=== PATIENT | female | born 1955 | race Caucasian/White ===

== ENCOUNTER → 2017-12-21 12:34 | Outpatient (CLI) | payer OTHER, SELFPAY ==
--- NOTE | 2017-12-21 12:37 | DI.RAD.S_ITS ---
PROCEDURE: XR SHOULDER LT MIN 2V INDICATIONS: left shoulder pain - suspect adhesive capsulitis TECHNIQUE: 3 views of the shoulder were acquired. COMPARISON: [facility], RG, XR CXR 2 VIEW, 02/23/2005, 10:46. [facility], CR, CHEST 2 VIEW, 12/18/2009, 9:29. [facility], CR, CHEST 2 VIEW, 03/28/2014, 8:27. [facility], CT, THORAX WITHOUT CONTRAST, 04/03/2014, 8:19. FINDINGS: Bones: No acute fractures or dislocations but there is moderate a.c. joint osteoarthritis and what appears to be calcific tendinitis or bursitis proper lateral aspect of the humeral head on the external rotation view. No suspicious bony lesions. Visualized ribs appear intact. Soft tissues: No suspicious soft tissue calcifications. IMPRESSION: Calcific tendinitis or bursitis lateral shoulder joint region above the outer upper border of the humeral head on the external rotation view. This can be less well-visualized on the internal rotation view superimposed on the expected course of the supraspinatus tendon. Dictated by: Sonny Triplett M.D. on 12/21/2017 at 13:25 Approved by: Sonny Triplett M.D. on 12/21/2017 at 13:27
--- NOTE | 2017-12-21 12:37 | DI.RAD.S_ITS ---
PROCEDURE: XR CERVICAL SPINE 2V OR 3V INDICATIONS: cervical pain ongoing - history of fusion TECHNIQUE: 3 view(s) of the cervical spine were acquired. COMPARISON: [facility], CR, CERVICAL SPINE 2 OR 3 VIEWS, 02/13/2015, 12:43. [facility], CT, C-SPINE WITHOUT CONTRAST, 02/28/2015, 14:56. FINDINGS: Bones: No fractures or dislocations to the T1 level. Prior extensive anterior spine fusion C3-C7, with no change in alignment of the components of the fusion devices bilaterally The lateral masses of C1 appear intact on the odontoid view. No suspicious bony lesions. Soft tissues: No prevertebral soft tissue swelling. IMPRESSION: Stable appearance of the anterior cervical fusion devices with reference to the comparison study from 02/13/15. No sign of device loosening or disruption. Dictated by: Sonny Triplett M.D. on 12/21/2017 at 13:22 Approved by: Sonny Tripltet M.D. on 12/21/2017 at 13:25
== END ==
PROVIDERS: Visit Provider Physician Assistant
DX: M54.2 Cervicalgia (principal); Z98.1 Arthrodesis status; M25.512 Pain in left shoulder
CPT/HCPCS: 72040; 73030

== ENCOUNTER → 2018-04-14 07:31 | Outpatient (CLI) | payer OTHER, SELFPAY ==
[2018-04-14 08:11] LABS: Add Manual Diff / Slide Review NO; Basophils Percent Auto 0.8 % (0-2); Eosinophils Percent Auto 3.4 % (2-4); Hematocrit 44.6 % (36-46); Hemoglobin 14.7 g/dL (12.0-16.0); Mean Corpuscular HGB Conc 32.9 % (30-36); Mean Corpuscular Hemoglobin 31.6 PG (26-34); Mean Corpuscular Volume 96.1 fL (80-100); Neutrophils Absolute Auto 3700 /uL (3000-5900); Neutrophils Percent Auto 52.8 % (50-75); Platelet Count 290 X10^3/uL (150-400); Red Blood Cell Count 4.65 X10^6/uL (4.0-5.2); Red Cell Distribution Width 13.7 % (11.6-14.8)
[2018-04-14 08:30] LABS: Alanine Aminotransferase 37 IU/L (9-52); Albumin 4.3 g/dL (3.5-5.0); Albumin Globulin Ratio 1.5 (1.0-2.8); Alkaline Phosphatase 64 U/L (38-126); Aspartate Aminotransferase 22 IU/L (14-36); BUN Creatinine Ratio 22.2 (6-22); Bilirubin Total 0.4 mg/dL (0.2-1.3); Blood Urea Nitrogen 20 mg/dL (7-17); Calcium 9.4 mg/dL (8.4-10.2); Carbon Dioxide 31 mmol/L (22-32); Chloride 102 mmol/L (98-107); Cholesterol 270 mg/dL (140-199); Estimated Glomerular Filt Rate > 60.0 mL/min (>60); Globulin 2.8 g/dL (1.7-4.1); Glucose 88 mg/dL (80-110); HDL Cholesterol 55 mg/dL (40-60); HEMOLYSIS < 15 (0-50); LDL Cholesterol Calculated 166 mg/dL (<100); Potassium 4.4 mmol/L (3.4-5.1); Sodium 144 mmol/L (137-145); Total Protein 7.1 g/dL (6.3-8.2); Triglycerides 244 mg/dL (35-150)
[2018-04-14 09:49] LABS: Thyroid Stimulating Hormone 2.32 uIU/mL (0.47-4.68)
== END ==
PROVIDERS: Visit Provider Physician Assistant
DX: E78.5 Hyperlipidemia, unspecified (principal); I47.1 Supraventricular tachycardia; R23.2 Flushing
CPT/HCPCS: 36415; 80053; 80061; 84443; 85025

== ENCOUNTER → 2018-04-20 13:30 | Outpatient (CLI) | payer OTHER, SELFPAY ==
--- NOTE | 2018-05-16 07:39 | PM.CARDMON.1 ---
[employer] Report Referral & Results Date Patient Seen: 04/20/18 Requesting provider: Paz Meza Indication: Palpitations Duration of monitoring (days): 14 Diary information: A diary entries were present, associated with sinus rhythm and PVCs 20 patient triggered events were present associated with sinus rhythm and PVCs as well Data: Minimum heart rate was 60 beats per minute at 05:53 on 04/30/2018 Maximum heart rate was 137 beats per minute at 10:15 on 04/28/2018 Less than 1% of identified beats were PACs however patient did have approximately 25,000 PVCs which composed about 1.6% of identified ventricular depolarizations. Patient did have a nearly 31 sec run of ventricular trigeminy as well. Impression: This monitor shows frequent PVCs which may well be a source of patient's symptoms of palpitations however patient has a large burden of PVCs that do not appear to be symptomatic based on only a limited number of patient reported events. No more serious or concerning dysrhythmias were identified with this study Clinical correlation suggested
== END ==
PROVIDERS: Visit Provider Physician Assistant
DX: R00.2 Palpitations (principal)
CPT/HCPCS: 0296T; 0298T

== ENCOUNTER → 2018-05-21 13:50 | Outpatient (CLI) | payer OTHER, SELFPAY | PROVIDERS: Visit Provider Physician Assistant | DX: R68.89 Other general symptoms and signs (principal) | CPT/HCPCS: 87400 ==

== ENCOUNTER 2019-03-13 01:10 | Emergency (ER) | payer OTHER, SELFPAY ==
[2019-03-13] VITALS (9 sets, daily range): BP systolic 96–146; BP diastolic 58–91; PULSE 91–208; RESP 17–20; TEMP 37.8; O2SAT 97–99
[2019-03-13] MEDS: ADENOSINE 6 MG/2 ML VIAL 12 MG IV ×2 (01:34→01:37)
[2019-03-13] MEDS: dilTIAZem 5 MG/ML SDV 10 MG IV (01:34)
--- NOTE | 2019-03-13 01:45 | ED_ITS ---
HPI - Arrhythmia/Palpitations General Chief Complaint: Arrhythmia/Palpitations Stated Complaint: Rapid Heart rate Time Seen by Provider: 03/13/19 01:20 Source: patient and EMS Mode of arrival: EMS Limitations: no limitations History of Present Illness HPI narrative: 63-year-old female arrived by EMS for evaluation of a rapid heart rate. Patient states she was woken up in the middle of the night with a fast heart rate. She was having some chest pressure at the time. She states she has had similar symptoms in the past. She has been diagnosed with SVT in the past. Has needed adenosine in the past. Has been evaluated by Cardiology has had a Holter monitor however despite all of this has never had any electrophysiologic studies. She is not currently on any medications for this. Went to bed last night feeling ?bad? that she could not express any more specific than this. Woke up with her heart beating fast. She tried vagal maneuvers that were unsuccessful. Contacted 911. When EMS arrived they stated that her heart rate was in the 220s. She received 6 mg of adenosine prior to arrival which conver sky her to sinus tachycardia with the rate in the 110s. Patient reports that she feels much better upon arrival. Related Data Home Medications Medication Instructions Recorded Confirmed Doxepin Liquid Concentrate See Rx Instructions .ROUTE .COMPLEX 12/21/17 01/03/19 valacyclovir 500 mg tablet 1,000 mg PO Q12H PRN 01/03/19 01/03/19 Previous Rx's Medication Instructions Recorded bupropion HCl 150 mg tablet,12 hr 150 mg PO BID #180 tab 09/06/18 sustained-release hydroxyzine pamoate 25 mg capsule 25 - 50 mg PO HSP PRN #45 cap 09/06/18 oxycodone-acetaminophen 5 mg-325 1 tab PO BIDP PRN #45 tab 01/03/19 mg tablet salsalate 750 mg tablet 750 mg PO BID #60 tab 01/03/19 Allergies Allergy/AdvReac Type Severity Reaction Status Date / Time celecoxib AdvReac Intermediate Diarrhea Verified 01/03/19 16:13 Hay fever Allergy Mild itchy Uncoded 01/03/19 16:13 eyes, stuffy nose, cough Review of Systems Constitutional Constitutional: Denies fever(s), Denies headache(s) and Reports malaise ENT Ears, Nose, Mouth, and Throat: Denies headache(s) Cardiovascular Cardiovascular: Reports rapid heart rate and Denies dyspnea Respiratory Respiratory: Denies dyspnea Gastrointestinal Gastrointestinal: Denies abdominal pain, Denies nausea and Denies vomiting Genitourinary Genitourinary: Denies dysuria Musculoskeletal Musculoskeletal: Denies myalgias and Denies arthralgias Integumentary/Breasts Skin/Breast: Denies lesions and Denies rash Neurologic Neurologic: Denies behavioral changes and Denies headache(s) Psychiatric Psychiatric: Denies behavioral changes and Denies depression Hematologic/Lymphatic Hematologic/Lymphatic: Denies easy bleeding and Denies easy bruising Allergic/Immunologic Allergic/Immunologic: Denies urticaria Patient History Medical History Abnormal Pap smear of cervix (Resolved) Cervical myelopathy (Resolved 11/2004) Cervical spine disease (Chronic) DDD (degenerative disc disease), cervical (Chronic) Depression (Chronic) Hyperlipemia (Chronic) Insomnia (Chronic) Low back pain (Chronic) Paroxysmal SVT (supraventricular tachycardia) (Chronic) Spondylosis (Chronic) Surgical History History of spinal fusion (11/2004) Family History (Updated 01/12/18 @ 11:52 by Baylee Pena LPN) Father Cancer Mother No problems noted. Brother No problems noted. Brother No problems noted. Social History Smoking Status: Former smoker Tobacco: How many years used: 40 second hand exposure: No alcohol intake: current (beer probably 1 to 3 a day.) substance use type: marijuana (I smoke pot once in a while, but not very much.) alcohol intake frequency: 0-2 drinks per day Alcohol type: beer Exam Initial Vital Signs Initial Vital Signs: Vital Signs Temperature 100.1 F H 03/13/19 01:15 Pulse Rate 106 H 03/13/19 01:15 Respiratory Rate 18 03/13/19 01:15 Blood Pressure 146/75 H 03/13/19 01:15 Pulse Oximetry 97 03/13/19 01:15 Const General: cooperative and comfortable Orientation: alert, awake and oriented x3 HENMT Head: normal to inspection and normocephalic Neck Neck: no meningeal signs Chest Chest: normal inspection of the chest Resp Effort & Inspection: normal respiratory effort Auscultation: clear to auscultation bilaterally Cardio Rate: tachycardic Rhythm: regular rhythm Pulses: radial pulses present GI Inspection: non-distended Palpation: soft Skin Lesions: no lesions Rashes: no rashes Neuro General: alert and oriented x3 Cognition: normal cognition Speech: speech normal Motor: muscle tone normal throughout Extrem General: normal to inspection and capillary refill normal Psych Appearance: grossly normal and well kempt Scores GCS [place] coma scale eye opening: Spontaneous [place] coma scale verbal response: Orientated [place] coma scale motor response: Obey commands [place] coma scale total score: 15 Course Orders Ordered: ED Orders 03/13/19 00:50 Basic Metabolic Panel Stat Complete Blood Count AUTO DIFF Stat Thyroid Stimulating Hormone Stat 03/13/19 01:16 EKG-12 Lead Stat Diltiazem HCl 125 mg/ Dextrose 125 mls @ 5 mls/hr IV TITRATE BATSHEVA; Protocol Last Admin: 03/13/19 01:49 Dose: 5 mg/hr, 5 mls/hr Documented by: CHELE Discontinued Medications Diltiazem HCl (Cardizem) 10 mg IV NOW ONE Stop: 03/13/19 01:43 Last Admin: 03/13/19 01:34 Dose: 10 mg Documented by: CHELE Vital Signs Vital signs: Vital Signs - 8 hr 03/13/19 01:15 03/13/19 01:34 03/13/19 01:49 Temperature 100.1 F H Pulse Rate 106 H 208 H 109 H Respiratory Rate 18 Blood Pressure 96/59 L 132/78 Blood Pressure [Left Arm] 146/75 H Pulse Oximetry 97 03/13/19 02:14 03/13/19 02:34 03/13/19 03:02 Temperature Pulse Rate 107 H 103 H 105 H Respiratory Rate 19 20 19 Blood Pressure Blood Pressure [Left Arm] 128/71 132/69 129/76 Pulse Oximetry 98 97 98 03/13/19 03:53 03/13/19 04:45 Temperature Pulse Rate 105 H 98 H Respiratory Rate 20 Blood Pressure Blood Pressure [Left Arm] 118/91 H 133/75 Pulse Oximetry 97 MDM - Arrhythmia/Palpitations Lab Data Attestation: I reviewed the patient's lab results. Result diagrams: 03/13/19 00:50 03/13/19 00:50 Labs: Lab Results 03/13/19 03/13/19 03/13/19 Range/Units 00:50 00:50 00:50 WBC 10.0 (4.5-11.0) X10^3/uL RBC 4.75 (4.0-5.2) X10^6/uL Hgb 15.4 (12.0-16.0) g/dL Hct 45.4 (36-46) % MCV 95.7 (80-100) fL MCH 32.4 (26-34) PG MCHC 33.8 (30-36) % RDW 13.5 (11.6-14.8) % Plt Count 291 (150-400) X10^3/uL Neut % (Auto) 57.8 (50-75) % Lymph % (Auto) 30.4 (25-40) % [place] % (Auto) 8.7 (3-14) % Eos % (Auto) 2.2 (2-4) % Baso % (Auto) 0.9 (0-2) % Neut # (Auto) 5800 (1811-1916) /uL Lymph # (Auto) 3000 (7741-1826) /uL [place] # (Auto) 900 (0-900) /uL Eos # (Auto) 200 (0-450) /uL Baso # (Auto) 100 (0-100) /uL Sodium 139 (137-145) mmol/L Potassium 4.2 (3.4-5.1) mmol/L Chloride 103 (98-107) mmol/L Carbon Dioxide 25 (22-32) mmol/L BUN 13 (7-17) mg/dL Creatinine 1.00 (0.52-1.04) mg/dL Estimated GFR 55.8 L (>60) mL/min BUN/Creatinine Ratio 13.0 (6-22) Glucose 167 H (80-110) mg/dL Calcium 9.9 (8.4-10.2) mg/dL TSH 4.07 (0.47-4.68) uIU/mL ECG Data Attestation: I personally reviewed and interpreted this ECG as follows: Prior ECG tracings: not available for review Interpretation: EKG upon arrival Sinus rhythm Ventricular rate of 108 Normal axis Normal QRS Normal QTC No ST T wave changes EKG with episode of SVT Tachycardic Ventricular rate of [address] depressions EKG after adenosine Sinus rhythm Ventricular rate of 150 Normal QRS [address] depressions in 2, 3, AVF, V2 V3 V4 V5 V6 MDM Narrative Medical decision making narrative: Patient arrived in sinus tachycardia. Blood pressure is unremarkable. She states that she felt much better from the start of her symptoms. She was slightly tachycardic. Because of this she was being observed in the emergency department when she had another episode of SVT. Rates in the 220s. She was given 6 mg of adenosine which decreased her rate into the 110s. This maintained for approximately 1 minute when she again had another episode of SVT. She was then given 12 mg of adenosine which improved her rate again to the 110s. She maintained this for under 5 minutes when again she had another episode of SVT with a rate in the 220s. She was then given 10 mg of Cardizem and started on a 5 milligram/hour drip of Cardizem. This decreased her heart rate to the 100s. I discussed the case with Dr. Patel who stated that the patient could be transferred to [facility] for further cardiologic/EP workup. I then discussed the case with with Internal Medicine who accepts the patient in transport. Discussed the transfer with patient. She expressed understanding and agreement. Critical Care Time Critical Care Time Critical Care Time: Yes Total Critical Care Time: 45 Attestation: The high probability of a clinically significant, sudden or life threatening deterioration of the cardiovascular system(s) required my full and direct attention, intervention and personal management. The aggregate critical care time was 45 minutes. This time is in addition to time spent performing reported procedures but includes the following: [] Data Review and interpretation [] Patient assessment and monitoring of vital signs [] Documentation [] Medication orders and management Discharge Plan Departure Patient Disposition: [facility] Clinical Impression: Supraventricular tachycardia Prescriptions: No Action Doxepin Liquid Concentrate See Rx Instructions .ROUTE .COMPLEX RF: 0 bupropion HCl [Wellbutrin SR] 150 mg tablet sustained-release 12 hr 150 mg PO BID Qty: 180 RF: 1 hydroxyzine pamoate [Vistaril] 25 mg capsule 25 - 50 mg PO HSP PRN (Reason: anxiety) Qty: 45 RF: 3 valacyclovir 500 mg tablet 1,000 mg PO Q12H PRNRF: 0 salsalate 750 mg tablet 750 mg PO BID Qty: 60 RF: 3 oxycodone-acetaminophen 5-325 mg tablet 1 tab PO BIDP PRN (Reason: chronic neck pain) Qty: 45 RF: 0 Referrals: Paz Meza PA-C [Primary Care Provider] -
[2019-03-13] MEDS: dilTIAZem 125 MG in DEXTROSE 5 % IN WATER 100 ML IV (01:49)
--- NOTE | 2019-03-13 02:28 | PC.NURSE ---
per ems hr 220s on scene, 6 of adenosine given on scene and patient converted. Pt arrived and placed on monitors. After several minutes patient went back in svt. 6 of adenosine given and pt converted with HR of 109. Minutes later patient returned to SVT with rate in the 220s. 12 of adenosine given and patient converted with HR of 110. Within minutes SVT returned. Cardezem push and drip started. HR 105 BP 132/69
[2019-03-13 02:32] LABS: Add Manual Diff / Slide Review NO; Basophils Absolute Auto 100 /uL (0-100); Basophils Percent Auto 0.9 % (0-2); Eosinophils Absolute Auto 200 /uL (0-450); Eosinophils Percent Auto 2.2 % (2-4); Hematocrit 45.4 % (36-46); Hemoglobin 15.4 g/dL (12.0-16.0); Lymphocytes Absolute Auto 3000 /uL (1100-4500); Lymphocytes Percent Auto 30.4 % (25-40); Mean Corpuscular HGB Conc 33.8 % (30-36); Mean Corpuscular Hemoglobin 32.4 PG (26-34); Mean Corpuscular Volume 95.7 fL (80-100); Monocytes Absolute Auto 900 /uL (0-900); Monocytes Percent Auto 8.7 % (3-14); Neutrophils Absolute Auto 5800 /uL (1500-7000); Neutrophils Percent Auto 57.8 % (50-75); Platelet Count 291 X10^3/uL (150-400); Red Blood Cell Count 4.75 X10^6/uL (4.0-5.2); Red Cell Distribution Width 13.5 % (11.6-14.8)
[2019-03-13 02:35] LABS: Blood Urea Nitrogen 13 mg/dL (7-17); Calcium 9.9 mg/dL (8.4-10.2); Carbon Dioxide 25 mmol/L (22-32); Chloride 103 mmol/L (98-107); Estimated Glomerular Filt Rate 55.8 mL/min (>60); Glucose 167 mg/dL (80-110); HEMOLYSIS 16 (0-50); Potassium 4.2 mmol/L (3.4-5.1); Sodium 139 mmol/L (137-145)
--- NOTE | 2019-03-13 03:07 | PC.NURSE ---
patient transfered self to and from commode with no assistance needed.
--- NOTE | 2019-03-13 03:10 | PC.NURSE ---
ecg performed upon arrival. ecg performed prior to cardezem push to capture with hr in the 220s.
[2019-03-13 03:12] LABS: Thyroid Stimulating Hormone 4.07 uIU/mL (0.47-4.68)
--- NOTE | 2019-04-06 21:55 | PC.NURSE ---
Diltiazem to continue in transport. Pt transfered with Kasia bryant.
== END 2019-03-13 06:57 | disposition short-term general hospital (02) ==
PROVIDERS: Emergency Provider Emergency Medicine; PCP Physician Assistant
DX: I47.1 Supraventricular tachycardia (principal)
CPT/HCPCS: 80048; 84443; 85025; 93005; 93010; 96365; 96366; 96375; 99283; 99291; J0153

== ENCOUNTER → 2019-05-07 14:02 | Outpatient (CLI) | payer OTHER, SELFPAY ==
--- NOTE | 2019-05-07 14:03 | DI.MG.S_ITS ---
BILATERAL DIGITAL SCREENING MAMMOGRAM 3D/2D WITH CAD: 05/07/2019 CLINICAL: Routine screening. Comparison is made to exams dated: 04/28/2012 mammogram, 10/16/2007 mammogram - [facility], and 12/12/2000 mammogram - [facility]. There are scattered fibroglandular elements in both breasts. Current study was also evaluated with a Computer Aided Detection (CAD) system. No significant masses, calcifications, or other findings are seen in either breast. There has been no significant interval change. IMPRESSION: NEGATIVE There is no mammographic evidence of malignancy. A 1 year screening mammogram is recommended. This exam was interpreted at Station ID: [id number]. NOTE: For mammograms, a report in lay terms will be sent to the patient. Approximately 15% of breast malignancies will not be visualized mammographically. In the management of a palpable breast mass, a negative mammogram must not discourage biopsy of a clinically suspicious lesion. Electronically Signed By: Giuseppe mccallum/roverto:05/07/2019 18:16:14 letter sent: Normal Exam ACR BI-RADS Category 1: Negative 3341F
== END ==
PROVIDERS: PCP Student in an Organized Health Care Education/Training Program; Visit Provider Physician Assistant
DX: Z12.31 Encounter for screening mammogram for malignant neoplasm of breast (principal)
CPT/HCPCS: 77063; 77067

== ENCOUNTER → 2020-12-15 09:55 | Outpatient (CLI) | payer OTHER, SELFPAY ==
--- NOTE | 2020-12-15 09:57 | DI.RAD.S_ITS ---
PROCEDURE: XR LUMBAR SPINE 2-3V INDICATIONS: Low back pain TECHNIQUE: 3 views of the lumbar spine were acquired. COMPARISON: [facility], CT, CT CHEST WITHOUT CONTRAST, 03/14/2019, 17:15. FINDINGS: Bones: 5 [id number] vertebrae are present. Minimal scoliosis. Exaggerated lumbar spine lordosis. Small vertebral body osteophytes. Suspected loss of intervertebral disc space height at L2-L3. Lower lumbar spine facet joint hypertrophy. No vertebral body compression fractures. No suspicious bony lesions. Soft tissues: Overlying bowel gas pattern is normal. No suspicious soft tissue calcifications. Vascular arterial calcifications. IMPRESSION: [id number] degenerative change and degenerative disc disease in the lumbar spine. Dictated by: Alvarado Pink M.D. on 12/15/2020 at 11:13 Approved by: Alvarado Pink M.D. on 12/15/2020 at 11:16
== END ==
PROVIDERS: PCP Student in an Organized Health Care Education/Training Program; Referring Provider Student in an Organized Health Care Education/Training Program; Visit Provider Student in an Organized Health Care Education/Training Program
DX: M54.5 Low back pain (principal); M51.36 Other intervertebral disc degeneration, lumbar region; M47.816 Spondylosis without myelopathy or radiculopathy, lumbar region
CPT/HCPCS: 72100

== ENCOUNTER → 2021-04-29 14:35 | Outpatient (CLI) | payer OTHER, SELFPAY ==
--- NOTE | 2021-04-29 14:42 | DI.RAD.S_ITS ---
PROCEDURE: XR DEXA AXIAL SKELETON INDICATIONS: Osteoporosis screening COMPARISON: None. FINDINGS: This blank DEXA report has been sent in error by the PACS system. The correct and complete report will be forthcoming in 1-2 days. Thank you for your patience and understanding. Dictated by: Jessica Quick MD, PhD on 04/29/2021 at 17:02 Approved by: Jessica Quick MD, PhD on 04/29/2021 at 17:02
== END ==
PROVIDERS: PCP Student in an Organized Health Care Education/Training Program; Referring Provider Student in an Organized Health Care Education/Training Program; Visit Provider Student in an Organized Health Care Education/Training Program
DX: Z78.0 Asymptomatic menopausal state (principal); Z87.891 Personal history of nicotine dependence
CPT/HCPCS: 77080

== ENCOUNTER → 2021-06-01 07:48 | Outpatient (CLI) | payer OTHER, SELFPAY ==
--- NOTE | 2021-06-01 07:50 | DI.MG.S_ITS ---
BILATERAL DIGITAL SCREENING MAMMOGRAM 3D/2D WITH CAD: 06/01/2021 CLINICAL: Routine screening. Comparison is made to exams dated: 05/07/2019 mammogram, 04/28/2012 mammogram, and 10/16/2007 mammogram - [facility]. There are scattered fibroglandular elements in both breasts. Current study was also evaluated with a Computer Aided Detection (CAD) system. No significant masses, calcifications, or other findings are seen in either breast. There has been no significant interval change. IMPRESSION: NEGATIVE There is no mammographic evidence of malignancy. A 1 year screening mammogram is recommended. This exam was interpreted at Station ID: [id number]. NOTE: For mammograms, a report in lay terms will be sent to the patient. Approximately 15% of breast malignancies will not be visualized mammographically. In the management of a palpable breast mass, a negative mammogram must not discourage biopsy of a clinically suspicious lesion. Electronically Signed By: Giuseppe Finch M.D. at/roverto:06/01/2021 09:40:14 letter sent: Normal Exam ACR BI-RADS Category 1: Negative [id number]
== END ==
PROVIDERS: PCP Student in an Organized Health Care Education/Training Program; Referring Provider Student in an Organized Health Care Education/Training Program; Visit Provider Student in an Organized Health Care Education/Training Program
DX: Z12.31 Encounter for screening mammogram for malignant neoplasm of breast (principal)
CPT/HCPCS: 77063; 77067

== ENCOUNTER 2021-11-03 07:30 | Outpatient (RCR) | payer MEDICARE, OTHER, SELFPAY ==
--- NOTE | 2021-10-19 07:59 | PT.OIE ---
Current Diagnoses Other chronic pain (10/19/21) Other cervical disc degeneration, unspecified cervical region (10/19/21) Low back pain, unspecified (10/19/21) Other symptoms and signs involving the musculoskeletal system (10/19/21) Past Medical History (Last Updated 05/18/20 @ 18:16 by Tejas Lazar MD) Abnormal Pap smear of cervix Cervical myelopathy (11/2004) Cervical spine disease DDD (degenerative disc disease), cervical Depression History of cervical spinal arthrodesis (12/03/15) Hyperlipemia Insomnia Low back pain Paroxysmal SVT (supraventricular tachycardia) Spondylosis Past Surgical History (Last Reviewed 03/13/19 @ 04:39 by Immanuel Navas DO) History of spinal fusion (11/2004) Visit Care Team Role Provider Type Tejas Lazar MD Attending Provider Physician Family Provider Primary Care Provider Referring Provider Specialty: Internal Medicine Address: [address] [place] [address], [address], [facility] Email: [email or web address] Physical Therapy Initial Evaluation PT-OP-A Visit Information Start: 10/15/21 16:02 Freq: Status: Active Protocol: Document 10/19/21 07:30 AMB (Rec: 10/19/21 07:51 AMB [id number]) Out-Patient Physical Therapy Visit Information Visit Information Visit Type Initial Evaluation Visit Start Time 07:30 Visit Stop Time 08:15 Total Visit Minutes 45 Visit Number 1 PT-OP-B Current Condition Start: 10/15/21 16:02 Freq: Status: Active Protocol: Document 10/19/21 07:30 AMB (Rec: 10/19/21 07:51 AMB [id number]) Current Condition History of Current Condition Onset Date chronic Current Complaints low back pain History of Current Condition Cervical fusion years ago, long standing low back pain. More concerned about back than neck at this point.Central low back pain- tight calves, some tingling in right arm but hasn't noticed since retired 10 days ago. Difficulty sitting for extended periods like in an airplane due to the back pain. Likes to do yardwork, kneeling can be painful on R knee, but does weeding, moving rocks with wheelbarrow. 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 Prior Functional Status Baseline Function- ADL's Independent Baseline Function- Mobility Independent Current Functional Impairments (Reported) Functional Limitations- ADL's Limited sitting tolerance due to back pain Personal Factors Other Personal Factors That May Effect History C3C7 fusion, cardiac Therapy/Recovery ablation a few years ago PT-OP-C Subjective Start: 10/15/21 16:02 Freq: Status: Active Protocol: Document 10/19/21 15:51 AMB (Rec: 10/19/21 16:10 AMB [id number]) Patient Questionnaires Oswestry Low Back Index Oswestry Score 20 Oswestry Impairment 20 to 39% Impaired (Score 20- 39) OP-PT Pain Assessment Comments Pain Comments 4/10 low back pain PT-OP-J Posture/Palpation/Skin Start: 10/15/21 16:02 Freq: Status: Active Protocol: Document 10/19/21 07:30 AMB (Rec: 10/19/21 16:11 AMB [id number]) Posture Evaluation Comments Posture Comments Increased lumbar lordosis and tension throughout paraspinals . PT-OP-K Range of Motion Start: 10/15/21 16:02 Freq: Status: Active Protocol: Document 10/19/21 15:51 AMB (Rec: 10/19/21 16:10 AMB [id number]) Lumbar Spine Range of Motion Lumbar Spine Active Percentage Testing Position Standing Flexion 100 Extension 75 Lateral Flexion Left 75 Lateral Flexion Right 50 Comments pain on the L low back with right sidebending PT-OP-M Strength Start: 10/15/21 16:02 Freq: Status: Active Protocol: Document 10/19/21 15:51 AMB (Rec: 10/19/21 16:10 AMB [id number]) Hip Strength Hip Manual Muscle Testing Right Flexion (L2) 4+ Good+ Extension (S1) 4+ Good+ Abduction 4+ Good+ Left Flexion (L2) 4+ Good+ Extension (S1) 4+ Good+ Abduction 4+ Good+ PT-OP-Q Treatments Start: 10/15/21 16:02 Freq: Status: Active Protocol: Document 10/19/21 15:51 AMB (Rec: 10/19/21 16:10 AMB [id number]) Therapeutic Exercises Sitting Exercises pelvic tilt Reps/Minutes 10 Other Exercises 1 Other Exercise Name quadruped LE extension Comments cued form for reduced lumbar lordosis PT-OP-T Assessment and Plan Start: 10/15/21 16:02 Freq: Status: Active Protocol: Document 10/19/21 07:30 AMB (Rec: 10/20/21 07:50 AMB [id number]) Physical Therapy Assessment Rehab Potential Rehabilitation Potential Good Evaluation Complexity Number of Personal Factors/Comorbidities 1-2 Number of Body Systems Impaired 4 or More Clinical Presentation at Evaluation Stable Impairments Impairments Functional Activities,Pain, Posture,Soft Tissue Mobility Goals Three Impairment Yardwork Fdc Goal (LTG) Gwendolyn will perform 1 hour of yardwork with 3/10 pain or less. LTG Duration 8 weeks Two Impairment Pain Short Term Goal (STG) Gwendolyn will sit in her car for 1 hour with 3/10 pain or less. STG Duration 4 weeks One Impairment HEP Short Term Goal (STG) Gwendolyn will be independent and consistent with a HEP to improve her core/hip stability . STG Duration 4 weeks LTG Duration 8 weeks Assessment Summary Assessment Gwendolyn attends physical therapy because she wants an appropriate exercise regimine for her chronic low back pain, she does have a history of cervical fusion but is mostly concerned about her back at this point. She has just recently retired from a job where she was standing throughout her day and has noticed that her pain has reduced. However she continues to have pain with sitting, even if she is just sitting to watch a TV show at the end of her day. She is very active in her yard and wants to stay active. She does have tension in her lumbar paraspinals, increased lumbar lordosis, and knee pain that limits kneeling so she will benefit from physical therapy so that she can stay as active as possible in her [facility]. Physical Therapy Plan Frequency and Duration Frequency of Treatment 2x/Week Duration of Treatment 8 weeks Plan of Care Start Date 10/19/21 Plan of Care End Date 12/14/21 Therapeutic Interventions Therapeutic Interventions Home Exercise Program,Joint Mobilizations,Manual Therapy, Neuromuscular Re-education, Self-Care/Home Management, Therapeutic Activities, Therapeutic Exercises Modalities Cold Pack/Ice Massage,Electric Stimulation,Hot Packs Next Visit Focus/Plan Next Note Type Treatment Note Next Visit Plan Review HEP: quadruped LE ext, pelvic tilts
--- NOTE | 2021-10-19 08:00 | PT.OPPOC ---
Addendum entered and electronically signed by Darlene Huitron, PT 10/20/21 08:01: signature Original Note: Physical, Occupational & Speech Therapy At [facility] Current Diagnoses Other chronic pain (10/19/21) Other cervical disc degeneration, unspecified cervical region (10/19/21) Low back pain, unspecified (10/19/21) Other symptoms and signs involving the musculoskeletal system (10/19/21) Visit Care Team Role Provider Type Tejas Lazar MD Attending Provider Physician Family Provider Primary Care Provider Referring Provider Specialty: Internal Medicine Address: [address] [place] [address], [address], [facility] Email: [email or web address] Plan Of Care PT-OP-T Assessment and Plan Start: 10/15/21 16:02 Freq: Status: Active Protocol: Document 10/19/21 07:30 AMB (Rec: 10/20/21 07:50 AMB [id number]) Physical Therapy Assessment Rehab Potential Rehabilitation Potential Good Evaluation Complexity Number of Personal Factors/Comorbidities 1-2 Number of Body Systems Impaired 4 or More Clinical Presentation at Evaluation Stable Impairments Impairments Functional Activities,Pain, Posture,Soft Tissue Mobility Goals Three Impairment Yardwork Warehouseman Goal (LTG) Gwendolyn will perform 1 hour of yardwork with 3/10 pain or less. LTG Duration 8 weeks Two Impairment Pain Short Term Goal (STG) Gwendolyn will sit in her car for 1 hour with 3/10 pain or less. STG Duration 4 weeks One Impairment HEP Short Term Goal (STG) Gwendolyn will be independent and consistent with a HEP to improve her core/hip stability . STG Duration 4 weeks Assessment Summary Assessment Gwendolyn attends physical therapy because she wants an appropriate exercise regimine for her chronic low back pain, she does have a history of cervical fusion but is mostly concerned about her back at this point. She has just recently retired from a job where she was standing throughout her day and has noticed that her pain has reduced. However she continues to have pain with sitting, even if she is just sitting to watch a TV show at the end of her day. She is very active in her yard and wants to stay active. She does have tension in her lumbar paraspinals, increased lumbar lordosis, and knee pain that limits kneeling so she will benefit from physical therapy so that she can stay as active as possible in her [facility]. Physical Therapy Plan Frequency and Duration Frequency of Treatment 2x/Week Duration of Treatment 8 weeks Plan of Care Start Date 10/19/21 Plan of Care End Date 12/14/21 Therapeutic Interventions Therapeutic Interventions Home Exercise Program,Joint Mobilizations,Manual Therapy, Neuromuscular Re-education, Self-Care/Home Management, Therapeutic Activities, Therapeutic Exercises Modalities Cold Pack/Ice Massage,Electric Stimulation,Hot Packs Next Visit Focus/Plan Next Note Type Treatment Note Next Visit Plan Review HEP: quadruped LE ext, pelvic tilts Plan of Care Dates Plan of Care Start Date 10/19/21 Plan of Care End Date 12/14/21 Electronically Signed by: Darlene Huitron, PT 10/20/21 0800 If you are in agreement with this Plan of Care, please return a signed and dated copy. I have reviewed this Plan of Care and certify that the skilled therapy services above are required to meet the patient?s needs. Physician Signature Date Printed Name and Credentials Clinical Instructor Signature Printed Name and Credentials
--- NOTE | 2021-10-22 11:12 | PT.OTN ---
Current Diagnoses Other chronic pain (10/22/21) Other cervical disc degeneration, unspecified cervical region (10/22/21) Low back pain, unspecified (10/22/21) Other symptoms and signs involving the musculoskeletal system (10/22/21) Physical Therapy Treatment Note PT-OP-A Visit Information Start: 10/15/21 16:02 Freq: Status: Active Protocol: Document 10/22/21 07:34 AMB (Rec: 10/22/21 08:16 AMB [id number]) Out-Patient Physical Therapy Visit Information Visit Information Visit Type Treatment Note Visit Start Time 07:30 Visit Stop Time 08:15 Total Visit Minutes 45 Visit Number 2 PT-OP-B Current Condition Start: 10/15/21 16:02 Freq: Status: Active Protocol: Document 10/19/21 07:30 AMB (Rec: 10/19/21 07:51 AMB [id number]) Current Condition History of Current Condition Onset Date chronic Current Complaints low back pain History of Current Condition Cervical fusion years ago, long standing low back pain. More concerned about back than neck at this point.Central low back pain- tight calves, some tingling in right arm but hasn't noticed since retired 10 days ago. Difficulty sitting for extended periods like in an airplane due to the back pain. Likes to do yardwork, kneeling can be painful on R knee, but does weeding, moving rocks with wheelbarrow. 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 Prior Functional Status Baseline Function- ADL's Independent Baseline Function- Mobility Independent Current Functional Impairments (Reported) Functional Limitations- ADL's Limited sitting tolerance due to back pain Personal Factors Other Personal Factors That May Effect History C3C7 fusion, cardiac Therapy/Recovery ablation a few years ago PT-OP-C Subjective Start: 10/15/21 16:02 Freq: Status: Active Protocol: Document 10/22/21 07:34 AMB (Rec: 10/22/21 08:16 AMB [id number]) OP-PT Subjective Patient Comments Patient Comments Pt is feeling about the same PT-OP-J Posture/Palpation/Skin Start: 10/15/21 16:02 Freq: Status: Active Protocol: Document 10/19/21 07:30 AMB (Rec: 10/19/21 16:11 AMB [id number]) Posture Evaluation Comments Posture Comments Increased lumbar lordosis and tension throughout paraspinals . PT-OP-K Range of Motion Start: 10/15/21 16:02 Freq: Status: Active Protocol: Document 10/19/21 15:51 AMB (Rec: 10/19/21 16:10 AMB [id number]) Lumbar Spine Range of Motion Lumbar Spine Active Percentage Testing Position Standing Flexion 100 Extension 75 Lateral Flexion Left 75 Lateral Flexion Right 50 Comments pain on the L low back with right sidebending PT-OP-M Strength Start: 10/15/21 16:02 Freq: Status: Active Protocol: Document 10/19/21 15:51 AMB (Rec: 10/19/21 16:10 AMB [id number]) Hip Strength Hip Manual Muscle Testing Right Flexion (L2) 4+ Good+ Extension (S1) 4+ Good+ Abduction 4+ Good+ Left Flexion (L2) 4+ Good+ Extension (S1) 4+ Good+ Abduction 4+ Good+ PT-OP-Q Treatments Start: 10/15/21 16:02 Freq: Status: Active Protocol: Document 10/22/21 07:30 AMB (Rec: 10/22/21 11:12 AMB [id number]) Therapeutic Exercises Supine Exercises 1 Supine Exercise Name table top tap down Reps/Minutes 10 Comments cued TA Sidelying Exercises hip abd Reps/Minutes 2x10 Comments cues to avoid lordosis, enough hip extension Sitting Exercises pelvic tilt Reps/Minutes 10 Comments on 65cm ball Standing Exercises side step Resistance #3 t band Reps/Minutes 2x10 squat Reps/Minutes 2x10 Comments heavy cues for avoiding lumbar lordosis, hips back PT-OP-T Assessment and Plan Start: 10/15/21 16:02 Freq: Status: Active Protocol: Document 10/22/21 07:34 AMB (Rec: 10/22/21 08:16 AMB [id number]) Physical Therapy Assessment Goals Three Impairment Yardwork Fdc Goal (LTG) Gwendolyn will perform 1 hour of yardwork with 3/10 pain or less. LTG Duration 8 weeks Two Impairment Pain Short Term Goal (STG) Gwendolyn will sit in her car for 1 hour with 3/10 pain or less. STG Duration 4 weeks One Impairment HEP Short Term Goal (STG) Gwendolyn will be independent and consistent with a HEP to improve her core/hip stability . STG Duration 4 weeks Assessment Summary Assessment Gwendolyn feels back is a bit better, does find it hard to avoid lumbar lordosis positioning especially in squatting. Engaging TA is helfpul. Physical Therapy Plan Next Visit Focus/Plan Next Visit Plan REveiw squat from, TA tap down
--- NOTE | 2021-11-03 16:07 | PT.OTN ---
Current Diagnoses Other chronic pain (11/03/21) Other cervical disc degeneration, unspecified cervical region (11/03/21) Low back pain, unspecified (11/03/21) Other symptoms and signs involving the musculoskeletal system (11/03/21) Physical Therapy Treatment Note PT-OP-A Visit Information Start: 10/15/21 16:02 Freq: Status: Active Protocol: Document 11/03/21 07:35 AMB (Rec: 11/03/21 08:24 AMB [id number]) Out-Patient Physical Therapy Visit Information Visit Information Visit Type Treatment Note Visit Start Time 07:35 Visit Stop Time 08:15 Total Visit Minutes 45 Visit Number 3 PT-OP-B Current Condition Start: 10/15/21 16:02 Freq: Status: Active Protocol: Document 10/19/21 07:30 AMB (Rec: 10/19/21 07:51 AMB [id number]) Current Condition History of Current Condition Onset Date chronic Current Complaints low back pain History of Current Condition Cervical fusion years ago, long standing low back pain. More concerned about back than neck at this point.Central low back pain- tight calves, some tingling in right arm but hasn't noticed since retired 10 days ago. Difficulty sitting for extended periods like in an airplane due to the back pain. Likes to do yardwork, kneeling can be painful on R knee, but does weeding, moving rocks with wheelbarrow. 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 PT-OP-J Posture/Palpation/Skin Start: 10/15/21 16:02 Freq: Status: Active Protocol: Document 10/19/21 07:30 AMB (Rec: 10/19/21 16:11 AMB [id number]) Posture Evaluation Comments Posture Comments Increased lumbar lordosis and tension throughout paraspinals . PT-OP-K Range of Motion Start: 10/15/21 16:02 Freq: Status: Active Protocol: Document 10/19/21 15:51 AMB (Rec: 10/19/21 16:10 AMB [id number]) Lumbar Spine Range of Motion Lumbar Spine Active Percentage Testing Position Standing Flexion 100 Extension 75 Lateral Flexion Left 75 Lateral Flexion Right 50 Comments pain on the L low back with right sidebending PT-OP-M Strength Start: 10/15/21 16:02 Freq: Status: Active Protocol: Document 10/19/21 15:51 AMB (Rec: 10/19/21 16:10 AMB [id number]) Hip Strength Hip Manual Muscle Testing Right Flexion (L2) 4+ Good+ Extension (S1) 4+ Good+ Abduction 4+ Good+ Left Flexion (L2) 4+ Good+ Extension (S1) 4+ Good+ Abduction 4+ Good+ PT-OP-Q Treatments Start: 10/15/21 16:02 Freq: Status: Active Protocol: Document 11/03/21 07:35 AMB (Rec: 11/03/21 08:24 AMB [id number]) Therapeutic Exercises Supine Exercises dying bug Reps/Minutes 10 1 Supine Exercise Name table top tap down Reps/Minutes 10 Comments cued TA Sidelying Exercises side plank Reps/Minutes 10x4 hip abd Reps/Minutes 2x10 Comments cues to avoid lordosis, enough hip extension Sitting Exercises pelvic tilt Reps/Minutes 10 Comments on 65cm ball Standing Exercises side step Resistance #3 t band Reps/Minutes 2x10 squat Reps/Minutes 2x10 Comments better form PT-OP-T Assessment and Plan Start: 10/15/21 16:02 Freq: Status: Active Protocol: Document 11/03/21 07:35 AMB (Rec: 11/03/21 08:24 AMB [id number]) Physical Therapy Assessment Goals Three Impairment Yardwork Jury Consultant Goal (LTG) Gwendolyn will perform 1 hour of yardwork with 3/10 pain or less. LTG Duration 8 weeks Two Impairment Pain Short Term Goal (STG) Gwendolyn will sit in her car for 1 hour with 3/10 pain or less. STG Duration 4 weeks One Impairment HEP Short Term Goal (STG) Gwendolyn will be independent and consistent with a HEP to improve her core/hip stability . STG Duration 4 weeks Assessment Summary Assessment Gwendolyn isn't really having as much pain now that she is not working, but she is noticing some challenge with core exercises and can feel her back a little bit when doing exercises. Interested in continued PT to get stronger as she wants to be able to continue [place]work [place]. Physical Therapy Plan Next Visit Focus/Plan Next Visit Plan Progress core stability
--- NOTE | 2021-12-01 16:02 | PT.OPDS ---
Current Diagnoses Other chronic pain (11/03/21) Other cervical disc degeneration, unspecified cervical region (11/03/21) Low back pain, unspecified (11/03/21) Other symptoms and signs involving the musculoskeletal system (11/03/21) Visit Care Team Role Provider Type Tejas Lazar MD Attending Provider Physician Family Provider Primary Care Provider Referring Provider Specialty: Internal Medicine Address: [address] [place] [address], [address], [facility] Email: [email or web address] Visit Number Visit Number 3 Discharge Summary PT-OP-B Current Condition Start: 10/15/21 16:02 Freq: Status: Active Protocol: Document 10/19/21 07:30 AMB (Rec: 10/19/21 07:51 AMB [id number]) Current Condition History of Current Condition Onset Date chronic Current Complaints low back pain History of Current Condition Cervical fusion years ago, long standing low back pain. More concerned about back than neck at this point.Central low back pain- tight calves, some tingling in right arm but hasn't noticed since retired 10 days ago. Difficulty sitting for extended periods like in an airplane due to the back pain. Likes to do yardwork, kneeling can be painful on R knee, but does weeding, moving rocks with wheelbarrow. 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 PT-OP-J Posture/Palpation/Skin Start: 10/15/21 16:02 Freq: Status: Active Protocol: Document 10/19/21 07:30 AMB (Rec: 10/19/21 16:11 AMB [id number]) Posture Evaluation Comments Posture Comments Increased lumbar lordosis and tension throughout paraspinals . PT-OP-K Range of Motion Start: 10/15/21 16:02 Freq: Status: Active Protocol: Document 10/19/21 15:51 AMB (Rec: 10/19/21 16:10 AMB [id number]) Lumbar Spine Range of Motion Lumbar Spine Active Percentage Testing Position Standing Flexion 100 Extension 75 Lateral Flexion Left 75 Lateral Flexion Right 50 Comments pain on the L low back with right sidebending PT-OP-M Strength Start: 10/15/21 16:02 Freq: Status: Active Protocol: Document 10/19/21 15:51 AMB (Rec: 10/19/21 16:10 AMB [id number]) Hip Strength Hip Manual Muscle Testing Right Flexion (L2) 4+ Good+ Extension (S1) 4+ Good+ Abduction 4+ Good+ Left Flexion (L2) 4+ Good+ Extension (S1) 4+ Good+ Abduction 4+ Good+ PT-OP-T Assessment and Plan Start: 10/15/21 16:02 Freq: Status: Active Protocol: Document 12/01/21 16:02 AMB (Rec: 12/01/21 16:02 AMB [id number]) Physical Therapy Assessment Assessment Summary Assessment Gwendolyn calls into clinic stating that she no longer needs PT. She wasn't having much pain at her last visit therefore she is discharged. Physical Therapy Plan Discharge Physical Therapy Discharge Reasons Patient Request
== END 2021-12-02 13:56 ==
LOC: PHYS 07:30
PROVIDERS: Family Provider Student in an Organized Health Care Education/Training Program; PCP Student in an Organized Health Care Education/Training Program; Referring Provider Student in an Organized Health Care Education/Training Program; Visit Provider Student in an Organized Health Care Education/Training Program
DX: M54.50 Low back pain, unspecified (principal); G89.29 Other chronic pain; R29.898 Other symptoms and signs involving the musculoskeletal system; M50.30 Other cervical disc degeneration, unspecified cervical region
CPT/HCPCS: 97110; 97161

== ENCOUNTER → 2023-04-19 08:19 | Outpatient (CLI) | payer OTHER, SELFPAY ==
--- NOTE | 2023-04-19 08:21 | DI.RAD.S_ITS ---
PROCEDURE: XR CERVICAL SPINE 4V OR 5V INDICATIONS: NECK PAIN TECHNIQUE: 5 views of the cervical spine acquired. COMPARISON: [facility], , XR CERVICAL SPINE 2V OR 3V, 12/21/2017, 12:19. FINDINGS: Bones: No fractures or dislocations to the C7 level. Anterior spinal fusion from C3 through C7. Hardware appears intact without evidence of interval complication. Straightening of the normal cervical lordosis. Multilevel degenerative changes of the cervical spine are present. Oblique images demonstrate multilevel bony foraminal stenoses, most pronounced within the mid and lower cervical spine. Soft tissues: No prevertebral soft tissue swelling. IMPRESSION: Multilevel degenerative changes of the cervical spine status post anterior cervical fusion. Dictated by: Cordell Lay M.D. on 04/19/2023 at 10:40 Approved by: Cordell Lay M.D. on 04/19/2023 at 10:42
== END ==
PROVIDERS: Family Provider Student in an Organized Health Care Education/Training Program; PCP Student in an Organized Health Care Education/Training Program; Referring Provider Anesthesiology; Visit Provider Anesthesiology
DX: M47.812 Spondylosis without myelopathy or radiculopathy, cervical region (principal); M50.30 Other cervical disc degeneration, unspecified cervical region; M79.18 Myalgia, other site; G89.29 Other chronic pain; Z98.1 Arthrodesis status
CPT/HCPCS: 72050; 99214

== ENCOUNTER → 2024-11-13 12:08 | Outpatient (CLI) | payer MEDICARE, SELFPAY ==
--- NOTE | 2024-11-13 12:15 | DI.RAD.S_ITS ---
PROCEDURE: XR HAND LT MIN 3V INDICATIONS: HAND PAIN TECHNIQUE: 3 views of the hand(s) acquired. COMPARISON: None. FINDINGS: Bones: There are no osseous abnormalities Joints: Severe STT and 1st CMC degenerative change noted. There is mild degenerative change 1st MCP and all interphalangeal joints Soft tissues: No soft tissue abnormality. IMPRESSION: Degeneration Dictated by: Jose Villasenor M.D. on 11/14/2024 at 11:48 Approved by: Jose Villasenor M.D. on 11/14/2024 at 11:49
--- NOTE | 2024-11-13 12:15 | DI.RAD.S_ITS ---
PROCEDURE: XR KNEE STANDING BI INDICATIONS: KNEE PAIN TECHNIQUE: Three views of the right knee were acquired COMPARISON: None. FINDINGS: Bones: There are no osseous abnormalities. Joints: Moderate degeneration both medial tibial femoral and right patellofemoral joint. No effusion Effusions. Soft tissues: Moderate chondrocalcinosis in the left medial lateral menisci IMPRESSION: Degeneration. Dictated by: Jose Villasenor M.D. on 11/14/2024 at 11:50 Approved by: Jose Villasenor M.D. on 11/14/2024 at 11:51
--- NOTE | 2024-11-13 12:15 | DI.RAD.S_ITS ---
PROCEDURE: XR HAND RT MIN 3V INDICATIONS: HAND PAIN TECHNIQUE: 3 views of the hand(s) acquired. COMPARISON: None. FINDINGS: Bones: There are no osseous abnormalities Joints: Moderate distal radial ulnar, STT and 1st CMC degenerative change noted. There is severe degenerative change in the 3rd DIP and moderate degenerative change in the remaining interphalangeal and mild degenerative change in the MCP joints Soft tissues: No soft tissue abnormality. IMPRESSION: Degeneration Dictated by: Jose Villasenor M.D. on 11/14/2024 at 11:49 Approved by: Jose Villasenor M.D. on 11/14/2024 at 11:50
== END ==
PROVIDERS: PCP Family Medicine; Referring Provider Family Medicine; Visit Provider Family Medicine
DX: M17.11 Unilateral primary osteoarthritis, right knee (principal); M11.262 Other chondrocalcinosis, left knee; M25.561 Pain in right knee; M25.562 Pain in left knee; M79.641 Pain in right hand; M79.642 Pain in left hand; G89.29 Other chronic pain
CPT/HCPCS: 73130; 73565